=== PATIENT | male | born 1965 | race Caucasian/White ===

== ENCOUNTER 2021-01-22 08:12 | Emergency (ER) | payer OTHER, SELFPAY ==
--- NOTE | ~2021-01-22 | CT_ITS ---
EXAMINATION: CT brain wo con DATE: 01/22/2021 08:53 INDICATION: Left hemiparesis. Dizziness. TECHNIQUE: Computed tomography (CT) of the head was performed without intravenous contrast. The mA wa s adjusted according to patient size. Iterative reconstruction technique was employed. The dose-lengt h product was 605.33 mGy-cm. COMPARISON: None FINDINGS: There is a 4.1 x 2.4 x 2.6 cm mass in the right temporal occipital region abutting the cere bellar tentorium and the falx. There is surrounding low-attenuation vasogenic edema. There is no acut e ischemic infarct or intracranial hemorrhage. There is 7 mm leftward midline shift measured at the f oramen of [place]. There is a cavum septum pellucidum and vergae. There is mucosal thickening in the pa ranasal sinuses. The orbits are normal. The mastoid air cells are normal. IMPRESSION: 1. 4.1 cm mass in the right temporal occipital region with surrounding vasogenic edema. The different ial diagnosis includes meningioma, metastatic disease, and glioblastoma. Brain MRI without and with c ontrast is recommended. I called this result to Dr. Smith. 2. 7 mm leftward midline shift. Reviewed, dictated and finalized at location B. IMPRESSION: 1. 4.1 cm mass in the right temporal occipital region with surrounding vasogeni c edema. The differential diagnosis includes meningioma, metastatic disease, an d glioblastoma. Brain MRI without and with contrast is recommended. I called th is result to Dr. Smith. 2. 7 mm leftward midline shift.
--- NOTE | ~2021-01-22 | XR_ITS ---
EXAMINATION: XR chest 1V portable 01/22/2021 09:10 INDICATION: Left-sided weakness PROCEDURE: AP portable chest COMPARISON: No prior studies for comparison. FINDINGS: The lungs are clear. The cardiomediastinal silhouette is within normal limits. There are no pleural effusions. There is no pneumothorax suspected. IMPRESSION: 1: NO ACUTE CARDIOPULMONARY DISEASE. Reviewed, dictated and finalized at location A.
[2021-01-22 08:15] VITALS: BP 198/99; PULSE 89; RESP 16; TEMP 36.8; O2SAT 98
[2021-01-22 08:46] LABS: Glucose Point of Care 76 mg/dl (65-105)
--- NOTE | 2021-01-22 08:46 | ECG_ITS ---
Measurements Intervals [place] Rate: 79 P: 70 VT: 179 QRS: 114 QRSD: 110 T: 10 QT: 371 QTc: 426 Interpretive Statements SINUS RHYTHM RIGHT AXIS DEVIATION INTRAVENTRICULAR CONDUCTION DELAY BORDERLINE R WAVE PROGRESSION, ANTERIOR LEADS INFERIOR INFARCT, AGE INDETERMINATE ABNORMAL ECG Electronically Signed On 01-22-2021 9:07:17 CDT by Raghu Smith D.O.
[2021-01-22] MEDS: ASPIRIN 325 MG ENTERIC TABLET PO (09:03)
[2021-01-22 09:06] LABS: Basophils Absolute Auto 0.03 K/mm3 (0.00-0.10); Basophils Percent Auto 0.6 % (0.0-1.0); Eosinophils Absolute Auto 0.16 K/mm3 (0.02-0.50); Eosinophils Percent Auto 3.2 % (1.0-6.0); Hematocrit 45.3 % (40.0-54.0); Hemoglobin 15.5 g/dL (14.0-18.0); Immature Granulocyte Absolute 0.01 K/mm3 (0.00-0.00); Immature Granulocyte Percent A 0.2 % (0.0-0.0); Lymphocytes Absolute Auto 1.46 K/mm3 (1.10-4.50); Lymphocytes Percent Auto 29.1 % (18.0-42.0); Mean Corpuscular HGB Conc 34.2 g/dL (32.0-36.0); Mean Corpuscular Volume 93.4 fL (78.0-102.0); Neutrophils Absolute Auto 2.9 K/mm3 (1.7-7.2); Neutrophils Percent Auto 56.9 % (50.0-70.0); Platelet Count Result 239 K/mm3 (150-420); Red Blood Count 4.85 M/mm3 (4.70-6.10); Red Cell Distribution Width 12.7 % (11.6-14.4)
[2021-01-22 09:21] LABS: Partial Thromboplastin Time 25.5 SEC (23.90-30.70); Prothrombin Time 10.4 Seconds (9.50-12.10)
[2021-01-22 09:24] LABS: Alanine Aminotransferase 26 U/L (16-63); Albumin Level 3.9 g/dL (3.4-5.0); Alkaline Phosphatase 66 U/L (46-116); Anion Gap 11 mmol/L (8-16); Aspartate Amino Transferase 20 U/L (15-37); Bilirubin,Total 1.4 mg/dL (0.00-1.00); Blood Urea Nitrogen 16 mg/dL (7-18); Calcium 8.7 mg/dL (8.5-10.1); Carbon Dioxide 26 mmol/L (21-32); Chloride 106 mmol/L (98-108); Estimated Glomerular Filt Rate > 60; Ethanol < 3 mg/dL (0-6); Glucose 101 mg/dL (70-99); Osmolality Calculated 297 mOsm/kg (285-295); Potassium 4.4 mmol/L (3.5-5.1); Sodium 143 mmol/L (136-145); Total Protein 7.3 g/dL (6.4-8.2); Troponin I 28.6 ng/L (0.00-60.4)
[2021-01-22 09:28] LABS: SARS-CoV-2 Ag Negative (Negative)
[2021-01-22 09:30] LABS: Add Urine Microscopic? NO; Appearance Urine Clear (Clear); Bilirubin Urine Negative (Negative); Blood Urine Negative (Negative); Color Urine Light Yellow (Yellow); Glucose Urine UA Negative (Negative); Ketones Urine Negative (Negative); Leukocyte Esterase Ur Negative LEU/UL (Negative); Nitrate Urine Negative (Negative); Protein Urine Negative (Negative); pH Urine 7.5 (5.0-8.0)
[2021-01-22 09:47] VITALS: BP 154/87; PULSE 74; O2SAT 98
[2021-01-22 09:50] LABS: Amphetamine Screen Urine Negative (Negative); Barbiturate Screen Urine Negative (Negative); Benzodiazepines Screen Urine Negative (Negative); Cannabinoid Screen Urine Negative (Negative); Cocaine Screen Urine Negative (Negative); Methadone Screen Urine Negative (Negative); Opiate Screen Urine Negative (Negative); Phencyclidine Screen Urine Negative (Negative)
--- NOTE | 2021-01-22 10:06 | PC.NURSE ---
CALL PLACED TO [facility] IN [facility] FOR PLACEMENT - PT STATES HE WANTS US TO CONSULT WITH THEM BUT THAT THEY WILL DRIVE DOWN THERE.
--- NOTE | 2021-01-22 10:22 | ED.NEUROSD ---
HPI - Neuro Symptoms/Deficit General Source: patient, family and RN notes reviewed Mode of arrival: ambulatory Limitations: no limitations History of Present Illness Onset (ago): day(s) (2) Timing confirmed by: family member Location: left leg History of same: No Severity: moderate Quality: weak and numb Relieving factors: none Exacerbating factors: none Context: sudden onset On Anticoagulants: No Associated symptoms: weakness Treatments Prior to Arrival: none Related Data Home Medications Medication Instructions Recorded Confirmed No Home Medications 01/22/21 01/22/21 Allergies Allergy/AdvReac Type Severity Reaction Status Date / Time No Known Allergies Allergy Verified 01/22/21 08:27 Review of Systems Review of Systems: All systems reviewed & are unremarkable except as noted in HPI and below PMFSH Past Medical History Medical History Diabetes 1.5, managed as type 1 Exam Const: General: no acute distress and alert Nutritional Appearance: well nourished Orientation/consciousness: patient oriented x3 Limitations: no limitations HENMT: Head: normal to inspection Ears: external ears normal and TM's normal bilaterally General nose exam: Normal external nose present and Normal nares present Mouth: Yes lip normal and Yes moist mucous membranes Teeth and gingiva: dentition normal Throat: posterior oropharynx normal Eyes: Conjunctivae: conjunctivae normal Pupils: Equal, round and reactive pupils present EOM: EOMs intact bilaterally Neck: Neck: normal visual inspection and no lymphadenopathy Chest: Chest palpation & inspection: normal inspection of the chest Resp: Effort & Inspection: normal respiratory effort Auscultation: clear to auscultation bilaterally Cardio: Rate: regular rate Rhythm: regular rhythm GI: GI Palp: Yes Soft to palpation Percussion: Yes normal to percussion (non-tender abdomen.) Auscultation: normal bowel sounds : General: Yes bladder normal to palpation Male General Exam: Yes normal external exam Testes: Testes normal Back/Spine/Pelvis: Back: no CVA tenderness Skin: General skin exam: normal color Rashes: no rashes Neuro: General: patient oriented x3, moves all extremities and CN's II-XI intact bilaterally Gait exam (Neuro): Normal gait present (pt was unable to walk normally due to left leg obvious weakness. ) Extrem: General: normal to inspection and no pedal edema Psych: Appearance: grossly normal and well kempt Mental Status: mental status grossly normal Affect: normal affect Thought content: Yes Normal thought content present Course Course Emergency Course: pt was stable in the ED. pt for Neurology MD review now. He will go via POV directly from the ED. Reevaluation(s) Reevaluation #1: pt had left lower limb weakness. For Neuro review JASON> Date: 01/22/21 Time: 09:11 Vital Signs Vital signs: Vital Signs Temperature 36.8 C 01/22/21 08:15 Pulse Rate 89 01/22/21 08:15 Respiratory Rate 16 01/22/21 08:15 Blood Pressure 198/99 H 01/22/21 08:15 Pulse Oximetry 98 01/22/21 08:15 Temperature 36.8 C 01/22/21 08:15 Pulse Rate 73 01/22/21 11:19 Respiratory Rate 17 01/22/21 11:19 Blood Pressure 154/87 H 01/22/21 11:19 Pulse Oximetry 98 01/22/21 11:19 MDM - Neuro Symptoms/Deficit Differential Diagnosis Differential diagnosis: Likely delirium, peripheral neuropathy, multiple sclerosis and transient cerebral ischemia Medical Records Attestation: I reviewed the patient's medical records. Lab Data Attestation: I reviewed the patient's lab results. Result diagrams: 01/22/21 08:59 01/22/21 08:59 Labs: Lab Results 01/22/21 01/22/21 01/22/21 Range/Units 08:39 08:40 08:40 WBC (4.8-10.8) K/mm3 RBC (4.70-6.10) M/mm3 Hgb (14.0-18.0) g/dL Hct (40.0-54.0) % MCV (78.0-102.0) fL MCH (27.0-31.0) pg MCHC
--- NOTE | 2021-01-22 10:31 | PC.NURSE ---
NO BEDS AVAILABLE AT [facility]
--- NOTE | 2021-01-22 10:50 | PC.NURSE ---
ERP ASKS TO SPEAK TO NEUROSURGERY AT [facility] AND POSSIBLY WAIT FOR BED PLACEMENT, ADDITIONAL CALL PLACED
[2021-01-22 11:19] VITALS: BP 154/87; PULSE 73; RESP 17; O2SAT 98
== END 2021-01-22 11:20 | disposition left against medical advice (07) ==
PROVIDERS: Emergency Provider Emergency Medicine
DX: I63.9 Cerebral infarction, unspecified (principal); G93.9 Disorder of brain, unspecified; Z20.822 Contact with and (suspected) exposure to COVID-19
CPT/HCPCS: 36415; 70450; 71045; 80053; 80307; 81003; 82948; 83605; 84484; 85025; 85610; 85730; 87426; 93005; 99283; 99284; A9270; C9803

== ENCOUNTER 2021-04-29 18:21 | Emergency (ER) | payer OTHER, SELFPAY | END 2021-04-29 18:22 | disposition left against medical advice (07) | LOC: CHSED 18:23 | PROVIDERS: Emergency Provider Emergency Medicine; PCP Physician Assistant | DX: Z53.8 Procedure and treatment not carried out for other reasons (principal) | CPT/HCPCS: 99199 ==